=== PATIENT | female | born 1970 | race American Indian/Alaskan Native ===

== ENCOUNTER 2017-07-20 10:20 | Outpatient (CLI) | payer OTHER ==
[2017-07-20] MEDS ORDERED: NACL ONE (10:43)
--- NOTE | 2017-07-20 11:14 | Cat Scan Report ---
CTA CHEST INDICATION: Shortness of breath. COMPARISON: None similar. FINDINGS: Chest CTA performed following intravenous administration of 100 cc of Omnipaque 350. Rotational MIP's also obtained. Top normal heart size/slight cardiomegaly. No effusions. No aortic aneurysm, dissection or suspicious pulmonary arterial filling defects. No size significant adenopathy. Normal airway. Unremarkable thyroid. Clear lungs. Nonspecific distal esophageal wall prominence/thickening, not excluded for gastroesophageal reflux and/or hiatal hernia, amongst others. A [employer] shunt courses in the anterior chest subcutaneous plane. Images through included upper abdomen reveal cholecystectomy clips. Trace perihepatic ascites anteriorly. Mild to moderate multilevel mid to lower thoracic spine degenerative changes, including spurring and disc degeneration and T11-T12 disc protrusion with possible cord impingement. CONCLUSION: No CT evidence of pulmonary embolism with various other findings, as detailed above. Please correlate. Thank you for the opportunity to participate in this patient's care.
== END 2017-07-20 10:21 | disposition home or self-care (01) ==
LOC: CT 10:20
PROVIDERS: ATTEND Internal Medicine
DX: E11.9 Type 2 diabetes mellitus without complications (principal); R18.8 Other ascites; R06.02 Shortness of breath; R00.2 Palpitations; M47.894 Other spondylosis, thoracic region; Z90.49 Acquired absence of other specified parts of digestive tract
CPT/HCPCS: 71275; Q9967

== ENCOUNTER 2022-01-21 10:42 | Outpatient (CLI) | payer OTHER ==
--- NOTE | 2022-01-24 14:57 | Mammography Report ---
DIGITAL SCREENING MAMMOGRAM WITH CAD, 01/21/2022 CLINICAL INFORMATION / INDICATION: Routine screening mammography. SCREENING MAMMOGRAM TECHNIQUE: Digital bilateral 2D mammography was obtained in the craniocaudal and mediolateral obliqu e projections. This examination was interpreted with the benefit of Computer-Aided Detection analysis . COMPARISON: None. FINDINGS: Breast Density: The breasts are heterogeneously dense, which may obscure small masses. No dominant mass, suspicious calcifications, or architectural distortion in either breast. IMPRESSION: No mammographic evidence of malignancy. Follow up recommendation: Routine yearly BI-RADS Category 1: NEGATIVE A "normal" or negative report should not discourage follow up or biopsy of a clinically significant f inding. A written summary of these findings will be mailed to the patient. The patient will be entered into a mammography reporting system which will generate a reminder letter for the patient's next appointmen t at the appropriate interval. [employer] recommends yearly mammograms starting at age 40 and continuing as l umer as a woman is in good health. Breast MRI is recommended for women with an approximate 20-25% or greater lifetime risk of breast cancer, including women with a strong family history of breast or ova bill cancer or who have been treated for Hodgkin's disease. Signer Name: Cosme Cummins MD Signed: 01/24/2022 2:52 PM Workstation Name: [id number]
== END 2022-01-21 10:43 | disposition home or self-care (01) ==
LOC: MAMMO 10:42
PROVIDERS: ATTEND Internal Medicine
DX: Z12.31 Encounter for screening mammogram for malignant neoplasm of breast (principal)
CPT/HCPCS: 77067